=== PATIENT | male | born 1995 | race Caucasian/White ===

== ENCOUNTER 2019-07-17 15:36 | Emergency (ER) | payer MEDICAID ==
[~2019-07-17] VITALS: Ht 182.9 cm; Wt 100.0 kg
[2019-07-17] MEDS ORDERED: IBUPROFEN 400 MG TABLET PO ONE (16:15)
[2019-07-17 19:22] VITALS: BP 153/91
== END 2019-07-17 19:33 | disposition home or self-care (01) ==
LOC: EMS 15:40
DX: S92.311A Displaced fracture of first metatarsal bone, right foot, initial encounter for closed fracture (principal); W21.01XA Struck by football, initial encounter; Y93.61 Activity, american tackle football; Y92.89 Other specified places as the place of occurrence of the external cause; Y99.8 Other external cause status
CPT/HCPCS: 29515; 73700

== ENCOUNTER 2020-04-28 21:39 | Emergency (ER) | payer MEDICAID, OTHER ==
[~2020-04-28] VITALS: Ht 185.4 cm; Wt 109.1 kg
[2020-04-29 01:00] VITALS: BP 150/80
== END 2020-04-29 01:01 | disposition home or self-care (01) ==
LOC: EMS 21:39
DX: S60.121A Contusion of right index finger with damage to nail, initial encounter (principal); W23.0XXA Caught, crushed, jammed, or pinched between moving objects, initial encounter; Y93.89 Activity, other specified; Y92.488 Other paved roadways as the place of occurrence of the external cause; Y99.8 Other external cause status